=== PATIENT | male | born 1975 | race Caucasian/White ===

== ENCOUNTER 2017-02-03 22:40 | Emergency (ER) | payer MEDICAID, OTHER ==
[~2017-02-03] VITALS: Ht 177.8 cm; Wt 73.1 kg
[2017-02-03 22:41] VITALS: BP 128/76
== END 2017-02-04 00:10 | disposition home or self-care (01) ==
LOC: ED 23:59
DX: S63.521A Sprain of radiocarpal joint of right wrist, initial encounter (principal); S63.511A Sprain of carpal joint of right wrist, initial encounter; F15.10 Other stimulant abuse, uncomplicated; F17.210 Nicotine dependence, cigarettes, uncomplicated; W19.XXXA Unspecified fall, initial encounter; Y93.89 Activity, other specified; Y92.89 Other specified places as the place of occurrence of the external cause; Y99.8 Other external cause status
CPT/HCPCS: 99284